=== PATIENT | male | born 1995 | race Caucasian/White ===

== ENCOUNTER 2017-05-29 12:49 | Emergency (ER) | payer BC, OTHER ==
[2017-05-29 13:01] VITALS: BP 134/63; PULSE 50; RESP 18; TEMP 97.9; O2SAT 97
[2017-05-29] MEDS ORDERED: IBUPROFEN 600 MG TAB PO ONE (13:03)
--- NOTE | 2017-05-29 13:03 | EDPHY ---
H & P Time Seen by Provider: 05/29/17 12:56 HPI/ROS: CHIEF COMPLAINT: Left elbow pain HISTORY OF PRESENT ILLNESS: Patient is a 21-year-old male who presents to the emergency department after injuring his left elbow. The patient was struck by a golf cart while golfing. He now has a small bump in contusion on the posterior distal left humerus. His pain is worse with movement of his elbow. His pain is mild. He has no numbness or tingling. No other injury. REVIEW OF SYSTEMS: Negative Past Medical/Surgical History: Negative Social history: The patient does not smoke Smoking Status: Never smoked Physical Exam: Vitals noted General Appearance: Alert and no distress. Head: Pupils equal. Normal. Respiratory: No respiratory distress. Cardiac: regular rate and rhythm. Extremities: patient has mild tenderness palpation it is distal posterior humerus. There is a small ecchymotic area with swelling. Patient's olecranon and radial head are nontender. He has full range of the elbow against resistance. He has primarily discomfort with for supination of his hand. Neurovascularly intact distally Skin: No rashes or lesions. Neuro: Alert. Normal mood and affect. Constitutional: Initial Vital Signs Temperature (C) 36.6 C 05/29/17 12:59 Heart Rate 50 L 05/29/17 12:59 Respiratory Rate 18 05/29/17 12:59 Blood Pressure 134/63 H 05/29/17 12:59 O2 Sat (%) 97 05/29/17 12:59 O2 Delivery Mode Room Air Allergies/Adverse Reactions: No Known Allergies Allergy (Unverified 05/29/17 12:58) Home Medications: Medication Instructions Recorded NK [No Known Home Meds] 05/29/17 Medical Decision Making - Diagnostics Imaging Results: Imaging Impressions Elbow X-Ray 05/29/17 12:59 Impression: Negative left elbow radiographs. ED Course/Re-evaluation: In the emergency department I discussed possible etiologies with the patient. I answered all his questions. X-ray of his left elbow was ordered. Left elbow x-ray: Please refer the dictated report. No fracture dislocation. Discussed the results with the patient. I answered all his questions. He is aware he needs close follow-up with Orthopedics. He is placed in a shoulder sling for comfort. He will return with worsening symptoms. He is aware he needs to use ice for the next 48 hours. Differential Diagnosis: My differential includes but is not limited to elbow contusion, elbow strain, sprain, ligamentous disruption, tendon disruption, hematoma. I doubt compartment syndrome. I doubt neurovascular injury. - Data Points Medications Given: Discontinued Medications Ibuprofen (Motrin) 600 mg PO EDNOW ONE Stop: 05/29/17 13:04 Last Admin: 05/29/17 13:21 Dose: 600 mg Departure - Departure Disposition: Home, Routine, Self-Care Clinical Impression: Left elbow pain Condition: Good Instructions: Swollen Joint (ED) Additional Instructions: You need close follow-up with Orthopedics. There were no visible broken bones. However, you could have injured the soft tissue, tendon or ligaments of the elbow and arm. This will need further evaluations by an clutch specialist. Referrals: Junaid Mabry MD [Primary Care Provider] - As per Instructions Robbi Shore MD [Medical Doctor] - 5-7 days, call for appt.
== END 2017-05-29 13:45 | disposition home or self-care (01) ==
LOC: CED 12:49
DX: S59.902A Unspecified injury of left elbow, initial encounter (principal); W21.13XA Struck by golf club, initial encounter
CPT/HCPCS: 73080-PO; A4565

== ENCOUNTER 2019-03-15 03:22 | Emergency (ER) | payer BC, OTHER ==
[2019-03-15] MEDS ORDERED: ONDANSETRON 4 MG/2 ML VIAL IVP ONE (03:25)
[2019-03-15] MEDS ORDERED: NS 1,000 ML IV ONE (03:25)
--- NOTE | 2019-03-15 03:27 | EDPHY ---
H & P Time Seen by Provider: 03/15/19 03:26 HPI/ROS: HPI CHIEF COMPLAINT: Alcohol Intoxication, Arc hold by [employer]. HISTORY OF PRESENT ILLNESS: Patient is a 23-year-old male, he arrives to the emergency room highly intoxicated with alcohol. He was found in the lobby of the [facility] unresponsive. He was difficult to wake up according to EMS police. However once awake the realized he was intoxicated. Unable to ambulate they brought him to the emergency room for further evaluation. He arrives, highly intoxicated alcohol, smells of alcohol, slurring speech with horizontal beating nystagmus. He reports he drank large amount of shots tonight. No trauma and no drug ingestion. Past Medical History: Denies medical history Past Surgical History: Denies surgical history Social History: [employer] student Family History: Noncontributory ROS REVIEW OF SYSTEMS: Somewhat limited due to alcohol intoxication Exam Constitutional Intoxicated, triage nursing summary reviewed, vital signs reviewed, Sleepy, smells of alcohol Eyes normal conjunctivae and sclera, horizontal beating nystagmus consistent acute alcohol intoxication, otherwise pupils equal and react to light HENT normal inspection, atraumatic, moist mucus membranes, no epistaxis, neck supple/ no meningismus, no raccoon eyes. Respiratory clear to auscultation bilaterally, normal breath sounds, no respiratory distress, no wheezing. Cardiovascular rate normal, regular rhythm, no murmur, no edema, distal pulses normal. Gastrointestinal soft, non-tender, no rebound, no guarding, normal bowel sounds, no distension, no pulsatile mass. Genitourinary no CVA tenderness. Musculoskeletal no midline vertebral tenderness, full range of motion, no calf swelling, no tenderness of extremities, no meningismus, good pulses, neurovascularly intact. Skin pink, warm, & dry, no rash, skin atraumatic. Neurologic sleepy, intoxicated with alcohol,, alert and oriented x 3, AAOx3, moves all 4 extremities equally, motor intact, sensory intact, CN II-XII intact , , normal vision, normal speech. Psychiatric normal mood/affect. Heme/Lymph/Immune no lymphadenopathy. Differential Diagnosis: Includes but is not limited to in a particular order acute alcohol intoxication, alcohol abuse, dehydration, electrolyte abnormality , nausea vomiting from acute alcohol intoxication Medical Decision Making: Plan for this patient IV establishment IV fluids, basic electrolytes, serum alcohol level, monitor for worsening of condition, monitor for sobriety. Re-evaluation: Serum alcohol level 293. 4:09 a.m. 0716: Patient still intoxicated alcohol needs more time to sober. Signed over to Dr. Lacy 7am. Once patient is more sober he can be safely discharged from the emergency room. Source: Patient, Police, EMS - Medical/Surgical History Other PMH: denies - Social History Smoking Status: Never smoked Constitutional: Initial Vital Signs Temperature (C) 36.7 C 03/15/19 03:26 Heart Rate 89 03/15/19 03:26 Respiratory Rate 16 03/15/19 03:26 Blood Pressure 136/95 H 03/15/19 03:26 O2 Sat (%) 99 03/15/19 03:26 O2 Delivery Mode Room Air Allergies/Adverse Reactions: No Known Allergies Allergy (Unverified 03/15/19 03:26) Home Medications: Medication Instructions Recorded NK [No Known Home Meds] 05/29/17 Medical Decision Making - Data Points Laboratory Results: Laboratory Results 03/15/19 03:20 03/15/19 03:20 03/15/19 03/15/19 03:20 03:20 WBC 9.88 10^3/uL H 10^3/uL (3.80-9.50) RBC 6.11 10^6/uL 10^6/uL (4.40-6.38) Hgb 19.0 g/dL H g/dL (13.7-17.5) Hct 54.8 % H % (40.0-51.0) MCV 89.7 fL fL (81.5-99.8) MCH 31.1 pg pg (27.9-34.1) MCHC 34.7 g/dL g/dL (32.4-36.7) RDW 12.4 % % (11.5-15.2) Plt Count 297 10^3/uL 10^3/uL (150-400) MPV 10.3 fL fL (8.7-11.7) Neut % (Auto) 55.1 % % (39.3-74.2) Lymph % (Auto) 33.1 % % (15.0-45.0) Carter % (Auto) 7.3 % % (4.5-13.0) Eos % (Auto) 3.5 % % (0.6-7.6) Baso % (Auto) 0.8 % % (0.3-1.7) Nucleat RBC Rel Count 0.0 % % (0.0-0.2) Absolute Neuts (auto) 5.44 10^3/uL 10^3/uL (1.70-6.50) Absolute Lymphs (auto) 3.27 10^3/uL H 10^3/uL (1.00-3.00) Absolute Monos (auto) 0.72 10^3/uL 10^3/uL (0.30-0.80) Absolute Eos (auto) 0.35 10^3/uL 10^3/uL (0.03-0.40) Absolute Basos (auto) 0.08 10^3/uL 10^3/uL (0.02-0.10) Absolute Nucleated RBC 0.00 10^3/uL 10^3/uL (0-0.01) Immature Gran % 0.2 % % (0.0-1.1) Immature Gran # 0.02 10^3/uL 10^3/uL (0.00-0.10) Sodium 148 mEq/L H mEq/L (135-145) Potassium 4.8 mEq/L mEq/L (3.5-5.2) Chloride 104 mEq/L mEq/L (97-110) Carbon Dioxide 23 mEq/l mEq/l (22-31) Anion Gap 21 mEq/L H mEq/L (6-14) BUN 13 mg/dL mg/dL (7-23) Creatinine 1.0 mg/dL mg/dL (0.7-1.3) Estimated GFR > 60 Glucose 90 mg/dL mg/dL (70-100) Calcium 10.1 mg/dL mg/dL (8.5-10.4) Ethyl Alcohol 293 mg/dL H mg/dL (0-10) Medications Given: Discontinued Medications Sodium Chloride (Ns) 1,000 mls @ 0 mls/hr IV EDNOW ONE; Wide Open PRN Reason: Protocol Stop: 03/15/19 03:26 Last Admin: 03/15/19 03:27 Dose: 1,000 mls Ondansetron HCl (Zofran) 4 mg IVP EDNOW ONE Stop: 03/15/19 03:26 Last Admin: 03/15/19 06:49 Dose: Not Given Departure - Departure Disposition: Home, Routine, Self-Care Clinical Impression: Alcoholic intoxication Condition: Good Instructions: Alcohol Intoxication (ED) Additional Instructions: 1. Please be careful how much alcohol you drink. Referrals: Patient,NotPresent [Primary Care Provider] - As per Instructions
[2019-03-15 03:47] LABS: PLATELET COUNT 297 10^3/uL (150-400)
[2019-03-15 07:53] VITALS: BP 104/65
== END 2019-03-15 08:35 | disposition home or self-care (01) ==
LOC: EDUNIT#
DX: F10.920 Alcohol use, unspecified with intoxication, uncomplicated (principal); E86.9 Volume depletion, unspecified
CPT/HCPCS: 96374; G0480